=== PATIENT | female | born 1980 | race Caucasian/White ===

== ENCOUNTER 2019-06-10 18:30 | Emergency (ER) | payer SELFPAY ==
[2019-06-10] MEDS ORDERED: DIPHTH,PERTUSS(ACELL),TET 0.5 ML DISP.SYRIN IM ONE ×2 (18:48→20:58)
--- NOTE | 2019-06-10 18:49 | PDOC ---
Rapid Medical Evaluation Time Seen by Provider: 06/10/19 18:48 Medical Evaluation: 06/10/19 18:48 Pt c/o: cut 1st left digit on mandolin, unknown last tdap Pt on brief exam: noted filet lac to 1st digit tip pt ordered for: tdap Pt to proceed to the ED Discharge Disposition - Diagnosis Finger laceration - Discharge Dispostion Disposition: HOME Condition at time of disposition: Stable - Referrals Referrals: Kamron Elizalde MD [Staff Physician] - - Patient Instructions Additional Instructions: Please keep the dressing on for the next 48 hours. Your tetanus shot was updated today. Tylenol and Motrin as directed for pain. Return to the emergency room for worsening symptoms. Without fail follow-up with orthopedic hand surgery in 2 to 3 days for further evaluation and treatment options. - Post Discharge Activity
[2019-06-10 18:51] VITALS: BP 132/80; PULSE 75; TEMP 97.9; BMI 34.2
--- NOTE | 2019-06-10 20:54 | PDOC ---
History of Present Illness - General Chief Complaint: Laceration Stated Complaint: FINGER LACERATION Time Seen by Provider: 06/10/19 18:48 - History of Present Illness Initial Comments: 06/10/19 20:53 39-year-old female without comorbidities presents for evaluation of left thumb laceration. Patient was cutting a piece of squash with a mandolin in the kitchen when she avulsed the dermis of her left thumb at the tip Past History - Past Medical History Allergies/Adverse Reactions: Allergies Allergy/AdvReac Type Severity Reaction Status Date / Time No Known Allergies Allergy Verified 06/10/19 18:48 Home Medications: Ambulatory Orders NK [No Known Home Medication] 06/10/19 COPD: No - Immunization History Immunization Up to Date: No - Psycho Social/Smoking Cessation Hx Smoking History: Never smoked Review of Systems - Review of Systems Integumentary: Yes: See HPI *Physical Exam - Vital Signs Last Vital Signs Temp Pulse Resp BP Pulse Ox 97.9 F 75 16 132/80 99 06/10/19 18:50 06/10/19 18:50 06/10/19 18:50 06/10/19 18:50 06/10/19 18:50 - Physical Exam 06/10/19 20:53 There is a subcentimeter dermal avulsion at the radial tip of the left thumb. No gross sensorimotor deficits neurovascular intact Medical Decision Making - Medical Decision Making 06/10/19 20:53 Thumb laceration avulsion was thoroughly cleaned with soap and water Surgicel applied hemostasis obtained a dry sterile dressing was placed. Follow-up with orthopedic hand surgery Discharge - Discharge Information Problems reviewed: Yes Clinical Impression/Diagnosis: Finger laceration Condition: Stable Disposition: HOME - Admission No - Follow up/Referral Referrals: Kamron Elizalde MD [Staff Physician] - - Patient Discharge Instructions Additional Instructions: Please keep the dressing on for the next 48 hours. Your tetanus shot was updated today. Tylenol and Motrin as directed for pain. Return to the emergency room for worsening symptoms. Without fail follow-up with orthopedic hand surgery in 2 to 3 days for further evaluation and treatment options. - Post Discharge Activity
== END 2019-06-10 21:02 | disposition home or self-care (01) ==
LOC: JERFT 18:30
PROC: 3E0234Z Introduction of Serum, Toxoid and Vaccine into Muscle, Percutaneous Approach (ICD-10-PCS; principal; 2019-06-10)
DX: S61.012A Laceration without foreign body of left thumb without damage to nail, initial encounter (principal); W27.4XXA Contact with kitchen utensil, initial encounter; Y93.G1 Activity, food preparation and clean up; Y92.010 Kitchen of single-family (private) house as the place of occurrence of the external cause; Y99.8 Other external cause status
CPT/HCPCS: 90715; 99281-25